=== PATIENT | female | born 1940 | race Caucasian/White ===

== ENCOUNTER 2021-03-01 10:16 | Emergency (ER) | payer MEDICARE, SELFPAY ==
[2021-03-01 10:27] VITALS: BP 148/69; PULSE 77; RESP 16; TEMP 36.6; O2SAT 99; BMI 23.3
--- NOTE | 2021-03-01 10:28 | ED_ITS ---
HPI - Allergic Reaction General Chief complaint: General Medical Stated complaint: YELLOW JACKET STING Time Seen by Provider: 03/01/21 10:28 Source: patient Mode of arrival: ambulatory Limitations: no limitations History of Present Illness HPI narrative: patient was stung to her left hand yesterday. Now with a lot of swelling to left hand complaint: allergic reaction Onset (ago): day(s) Symptoms: other (hand swelling) Severity: moderate Treatment prior to arrival: benadryl Previous Allergic Reaction History: none Related Data Previous Rx's Medication Instructions Recorded diphenhydramine HCl [Benadryl] 25 mg PO QID PRN #20 cap 03/01/21 prednisone 60 mg PO DAILY #12 tab 03/01/21 Allergies Allergy/AdvReac Type Severity Reaction Status Date / Time No Known Allergies Allergy Verified 03/01/21 10:31 Review of Systems Constitutional: Constitutional: Reports no additional constitutional complaints Eyes: Eyes: Reports no additional eye complaints ENT: Denies dizziness Cardiovascular: Cardiovascular: Reports no additional cardiovascular complaints Respiratory: Respiratory: Reports as per HPI Gastrointestinal: Gastrointestinal: Reports no additional gastrointestinal complaints Genitourinary: Genitourinary: Reports no additional female genitourinary complaints Musculoskeletal: Musculoskeletal: Reports no additional musculoskeletal complaints Integumentary/Breasts: Skin/Breast: Denies rash Neurologic: Reports system reviewed and no additional complaints, except as documented, Denies dizziness and Denies Sensory deficit (Neuro) Psychiatric: Psychiatric: Denies anxiety [facility] Social History Social History Alcohol intake: never Patient Tobacco Use Status: Never used Tobacco Use of substances other than those prescribed or required for medical reasons: No Advance Directives: No Advance Directives Information Provided: No Physical Exam Vital Signs: Vital Signs: Last Vital Signs Temp 97.8 F 03/01/21 12:37 Pulse 64 03/01/21 12:37 Resp 18 03/01/21 12:37 BP 130/62 03/01/21 12:37 Pulse Ox 97 03/01/21 12:37 Body Mass Index 23.3 Const: General: healthy appearing Nutritional Appearance: average body habitus Orientation/consciousness: oriented to person and patient oriented x3 Limitations: no limitations HENMT: Head: Yes normal to inspection Ears: external ears normal General nose exam: Normal external nose present Mouth: Normal oral and palatal mucosa present and oropharynx normal Throat: Yes posterior oropharynx normal Eyes: General: appearance normal, both eyes and all related structures Neck: Other: supple Neck: Yes normal visual inspection Chest: Chest palpation & inspection: normal inspection of the chest Resp: Auscultation: clear to auscultation bilaterally Cardio: Jugular venous distension: no JVD Rate: regular rate Rhythm: regular rhythm Heart sounds: S1 normal heart sound present and S2 normal heart sound present GI: Inspection: Yes normal to inspection Palpation (GI): Soft to palpation, nontender and No hepatosplenomegaly present Auscultation: normal bowel sounds : General: Yes no CVA tenderness Back/Spine/Pelvis: Back: no CVA tenderness Skin: General skin exam: no rashes or lesions noted Neuro: General: oriented to person and patient oriented x3 Cranial nerves: Yes CN's II-XII intact bilaterally Motor exam (neuro): 5/5 motor strength present throughout Sensory Exam: No Sensory deficit (Neuro) Extrem: Other: left hand with swelling and redness Psych: Appearance: grossly normal Course Reevaluation(s) Reevaluation #1: finger tips improved, forearm improved will dc home Time: 13:51 Discharge Plan Discharge Clinical Impression: Allergic reaction to bee sting Patient Disposition: Home, Self-Care Instructions: Insect Bite or Sting (ED) Prescriptions: New diphenhydramine HCl [Benadryl] 25 mg capsule 25 mg PO QID PRN (Reason: allergic reaction) Qty: 20 RF: 0 prednisone 20 mg tablet 60 mg PO DAILY Qty: 12 RF: 0 Referrals: Jevon Harris MD [Primary Care Provider] - 1 week
[2021-03-01] MEDS: diphenhydrAMINE HCL 50 MG/ML VIAL IVPUSH (10:44)
[2021-03-01] MEDS: methylPREDNISolone Sod Succ 125 MG/2 ML VIAL IVPUSH (10:44)
[2021-03-01 12:37] VITALS: BP 130/62; PULSE 64; RESP 18; TEMP 36.6; O2SAT 97
== END 2021-03-01 14:08 | disposition home or self-care (01) ==
PROVIDERS: Emergency Provider Emergency Medicine; PCP Internal Medicine
DX: T63.441A Toxic effect of venom of bees, accidental (unintentional), initial encounter (principal); M79.89 Other specified soft tissue disorders; Y92.9 Unspecified place or not applicable
CPT/HCPCS: 96374; 96375; 99284; J1200; J2930